=== PATIENT | female | born 1945 | race Hispanic/Latino ===

== ENCOUNTER 2017-07-26 08:20 | Emergency (ER) | payer OTHER ==
[2017-07-26 08:20] VITALS: BMI 27.2
[2017-07-26 08:32] VITALS: RESP 18; TEMP 99.3
[2017-07-26] MEDS ORDERED: Albuterol 0.5% Inhal Sol (2.5 mg/0.5 ml) UD IH STA (08:54)
--- NOTE | 2017-07-26 09:00 | ED PDOC ---
Arrival/HPI - General Chief Complaint: Cough, Cold, Congestion Time Seen by Provider: 07/26/17 08:36 Historian: Patient - History of Present Illness Narrative History of Present Illness (Text): 07/26/17 09:00 A 71 year old female, whose past medical history includes hypertension, presents to the emergency department complaining of difficulty breathing and cough. She describes the cough as intermittent and dry. The patient states that she has been experiencing the shortness of breath for several weeks and was seen by her PMD. She states that she was given an inhaler, but this week her symptoms worsened. She notes that she has an appointment with a technical adjuster later this month. The patient denies fevers, chills, headache, dizziness, chest pain, dyspnea on exertion, abdominal pain, nausea, vomiting, diarrhea, back pain, neck pain, urinary/bowel changes, sick contacts, lower extremity swelling or any other complaint. PMD: Dr. Andre Boring Machine Set Up Operator Jig: Dr. Ordonez Time/Duration: Other (This week) Symptom Onset: Sudden Symptom Course: Unchanged Activities at Onset: Rest, Light Context: Home Past Medical History - Provider Review Nursing Documentation Reviewed: Yes - Past History Past History: Non-Contributing - Infectious Disease Hx of Infectious Diseases: None - Tetanus Immunization Tetanus Immunization: Unknown - Cardiac Hx Hypertension: Yes - Psychiatric Hx Depression: No Hx Emotional Abuse: No Hx Physical Abuse: No Hx Substance Use: No - Past Surgical History Past Surgical History: No Previous - Suicidal Assessment Feels Threatened In Home Enviroment: No Family/Social History - Physician Review Nursing Documentation Reviewed: Yes Family/Social History: No Known Family HX Smoking Status: Never Smoked Hx Alcohol Use: No Hx Substance Use: No Hx Substance Use Treatment: No Allergies/Home Meds Allergies/Adverse Reactions: Allergies shellfish derived Allergy (Verified 07/26/17 08:32) ANAPHYLAXIS Home Medications: Home Meds Medication Instructions Recorded Confirmed Olmesartan/Hydrochlorothiazide 1 tab PO DAILY 07/28/15 07/26/17 [Benicar Hct 40-12.5 mg Tablet] Review of Systems - Physician Review All systems were reviewed & negative as marked: Yes - Review of Systems Constitutional: absent: Fevers, Night Sweats Respiratory: SOB, Cough Cardiovascular: absent: Chest Pain, MUNOZ Gastrointestinal: absent: Abdominal Pain, Stool Changes, Diarrhea, Nausea, Vomiting Genitourinary Female: absent: Urine Output Changes Musculoskeletal: absent: Back Pain, Neck Pain Neurological: absent: Headache, Dizziness Physical Exam Vital Signs Reviewed: Yes Vital Signs Temp Pulse Resp BP Pulse Ox 07/26/17 12:35 65 18 115/72 99 07/26/17 11:35 64 18 150/72 100 07/26/17 08:30 99.3 F 97 H 18 128/88 97 Temperature: Afebrile Blood Pressure: Normal Pulse: Tachycardic Respiratory Rate: Normal Appearance: Positive for: Well-Appearing, Non-Toxic, Comfortable Pain Distress: None Mental Status: Positive for: Alert and Oriented X 3 - Systems Exam Head: Present: Atraumatic, Normocephalic Pupils: Present: PERRL Extroacular Muscles: Present: EOMI Conjunctiva: Present: Normal Mouth: Present: Moist Mucous Membranes Neck: Present: Normal Range of Motion Respiratory/Chest: Present: Clear to Auscultation, Good Air Exchange. No: Respiratory Distress, Accessory Muscle Use Cardiovascular: Present: Regular Rate and Rhythm, Normal S1, S2. No: Murmurs Abdomen: Present: Normal Bowel Sounds. No: Tenderness, Distention, Peritoneal Signs Back: Present: Normal Inspection Upper Extremity: Present: Normal Inspection. No: Cyanosis, Edema Lower Extremity: Present: Normal Inspection. No: Edema Neurological: Present: GCS=15, CN II-XII Intact, Speech Normal Skin: Present: Warm, Dry, Normal Color. No: Rashes Psychiatric: Present: Alert, Oriented x 3, Normal Insight, Normal Concentration Medical Decision Making ED Course and Treatment: 07/26/17 09:12 Impression: A 71 year old female presents to the emergency department with several week duration, worsening shortness of breath and cough Differential Diagnosis included but are not limited to: R/o Bronchitis vs PE vs CHF Plan: -- EKG -- Chest X-ray -- Labs -- Albuterol -- Reassess and disposition Progress Notes: EKG: Ordered, reviewed, and independently interpreted the EKG. Rate : 61 BPM Rhythm : NSR Interpretation : RBBB and diffuse T- wave inversions. Comparison : No change from 07/28/15 07/26/17 10:37 Patient's D-dimer was elevated. Will obtained CTA Chest. Will hydrate secondary to low GFR. Radiology approved CT. PROCEDURE: CT Chest with contrast (Pulmonary Angiogram) Dictator : Maxime Ferguson MD Report Date : 07/26/2017 12:04:27 IMPRESSION: Unremarkable CT pulmonary angiogram. No pulmonary embolus. Solitary pulmonary nodule 7 mm. Posterior segment, right upper lobe. Axial series 4/image 34. Orthogonal sagittal series 602/image 44 Recommended a follow-up in the evaluation of solitary pulmonary nodule Solitary nodule size: 6-8 mm 1. low risk patients: follow-up at 6-12 months, then consider further follow-up at 18-24 months 2. high risk patients: initial follow-up CT at 6-12 months and then at 18-24 months if no change CHEST X-RAY Dictator : Maxime Ferguson MD Report Date : 07/26/2017 12:05:19 IMPRESSION: No active disease. No significant interval change compared to the prior examination(s). 07/26/17 12:44: Patient states that her symptoms have improved. On re-evaluation , lungs are clear. I explained to the patient the result of her Chest CT which showed a pulmonary nodule. The patient was informed of the importance of follow up. She also said maybe she wasn't using the inhaler properly so i gave her instructions. i also prescribed her a nebulizer machine and prednisone. - Lab Interpretations Lab Results: 07/26/17 09:16 07/26/17 09:16 Lab Results 07/26/17 09:16: Sodium 139, Potassium 3.9, Chloride 99, Carbon Dioxide 25, Anion Gap 20, BUN 18, Creatinine 1.1, Est GFR ( Amer) 59, Est GFR (Non- Af Amer) 49, Random Glucose 119 H, Calcium 10.6 H, Lactate Dehydrogenase 367, Total Creatine Kinase 64, Troponin I < 0.01, NT-Pro-B Natriuret Pep 122 07/26/17 09:16: PT 12.8 H, INR 1.11 H, APTT 32.5, D-Dimer, Quantitative 715 H 07/26/17 09:16: WBC 5.3, RBC 5.00, Hgb 14.2, Hct 42.0, MCV 84.0, MCH 28.4, MCHC 33.8, RDW 13.6, Plt Count 287, MPV 9.2, Gran % 57.3, Lymph % (Auto) 35.3 H, [place] % (Auto) 4.9, Eos % (Auto) 2.1, Baso % (Auto) 0.4, Gran # 3.06, Lymph # ( Auto) 1.9, [place] # (Auto) 0.3, Eos # (Auto) 0.1, Baso # (Auto) 0.02 I have reviewed the lab results: Yes - RAD Interpretation Radiology Orders: 07/26/17 08:54 CHEST TWO VIEWS (PA/LAT) [RAD] Stat 07/26/17 09:59 ANGIO CHEST PE PROTOCOL [CT] Stat - EKG Interpretation Interpreted by ED Physician: Yes Type: 12 lead EKG - Medication Orders Current Medication Orders: Discontinued Medications Albuterol Sulfate (Albuterol 0.5% Inhal Ruby (2.5 Mg/0.5 Ml) Ud) 2.5 mg IH STAT STA Stop: 07/26/17 08:55 Last Admin: 07/26/17 09:16 Dose: 2.5 mg Sodium Chloride (Sodium Chloride 0.9%) 1,000 mls @ 999 mls/hr IV .Q1H1M STA Stop: 07/26/17 11:09 Last Admin: 07/26/17 10:15 Dose: 999 mls/hr eMAR Start Stop Document 07/26/17 10:15 RG (Rec: 07/26/17 11:02 RG [id number]) Intravenous Solution Start Date 07/26/17 Start Time 10:15 Prednisone (Prednisone Tab) 60 mg PO STAT STA Stop: 07/26/17 12:44 Last Admin: 07/26/17 12:52 Dose: 60 mg - Scribe Statement The provider has reviewed the documentation as recorded by the Giovanni Rausch Provider Scribe Attestation: All medical record entries made by the Miloibmira were at my direction and personally dictated by me. I have reviewed the chart and agree that the record accurately reflects my personal performance of the history, physical exam, medical decision making, and the department course for this patient. I have also personally directed, reviewed, and agree with the discharge instructions and disposition. Disposition/Present on Arrival - Present on Arrival Any Indicators Present on Arrival: No History of DVT/PE: No History of Uncontrolled Diabetes: No Urinary Catheter: No History of Decub. Ulcer: No History Surgical Site Infection Following: None - Disposition Have Diagnosis and Disposition been Completed?: Yes Diagnosis: Bronchitis Disposition: HOME/ ROUTINE Disposition Time: 12:46 Patient Plan: Discharge Condition: IMPROVED Discharge Instructions (ExitCare): Acute Bronchitis (ED) Additional Instructions: Ms Santos, thank you for letting us take care of you today. Your provider was Dr. Perez. You were treated for Bronchitis, Lung Nodule. The emergency medical care you received today was directed at your acute symptoms. If you were prescribed any medication, please fill it and take as directed. It may take several days for your symptoms to resolve. Return to the Emergency Department if your symptoms worsen, do not improve, or if you have any other problems. Please contact your doctor or call one of the physicians/clinics you have been referred to that are listed on the Patient Visit Information form that is included in your discharge packet. Bring any paperwork you were given at discharge with you along with any medications you are taking to your follow up visit. Our treatment cannot replace ongoing medical care by a primary care provider (PCP) outside of the emergency department. Thank you for allowing the [facility] team to be part of your care today. If you had an X-Ray or CT scan: A Radiologist will review the ED reading if any change in treatment is needed we will contact you. If you had a blood, urine, or wound culture: It will take several days for the results, if any change in treatment is needed we will contact you. If you had an STI test: It will take 48 hours for the results. Please call after 1 week if you have not heard back. Prescriptions: Albuterol 0.083% [Albuterol 0.083% Inhal Ruby (2.5 mg/3 ml) UD] 2.5 mg IH PRN PRN #1 PRN Reason: Shortness Of Breath Albuterol HFA [Ventolin HFA 90 mcg/actuation (8 g)] 2 puff IH Q4 #1 puff Nebulizer [Compact Compressor Nebulizer] 1 each MC Q4H PRN #1 each PRN Reason: Wheezing predniSONE [predniSONE Tab] 40 mg PO DAILY #8 tab Referrals: Fritz Ordonez MD [Staff Provider] - Follow up with primary Rickie Andre DO [Primary Care Provider] - Follow up with primary Forms: [employer] (Ukrainian)
[2017-07-26 09:49] LABS: BASO # 0.02 K/mm3 (0.0-2.0); BASO % 0.4 % (0.0-3.0); EOS # 0.1 (0.0-0.7); EOS % 2.1 % (1.5-5.0); GRAN # 3.06 (1.4-6.5); GRAN % 57.3 % (50.0-68.0); HEMOGLOBIN 14.2 g/dL (12.0-16.0); LYMPH # 1.9 (1.2-3.4); LYMPH % 35.3 % (22.0-35.0); MEAN CORPUSCULAR HEMOGLOBIN 28.4 pg (25.0-35.0); MEAN CORPUSCULAR HGB CONC 33.8 g/dl (31.0-37.0); MEAN PLATELET VOLUME 9.2 fl (7.0-11.0); MONO # 0.3 (0.1-0.6); MONO % 4.9 % (1.0-6.0); RED CELL DISTRIBUTION WIDTH 13.6 % (11.5-14.5); WHITE BLOOD COUNT 5.3 10^3/ul (4.5-11.0)
[2017-07-26 09:54] LABS: INR 1.11 (0.93-1.08); PARTIAL THROMBOPLASTIN TIME 32.5 Seconds (25.1-36.5); PROTHROMBIN TIME 12.8 SECONDS (9.4-12.5)
[2017-07-26 10:00] LABS: BLOOD UREA NITROGEN 18 mg/dL (7-21); CALCIUM 10.6 mg/dL (8.4-10.5); GFR AFRICAN-AMERICAN 59; GFR NON-AFRICAN AMERICAN 49
[2017-07-26 10:09] LABS: B-TYPE NATRIURETIC PEPTIDE 122 pg/mL (0-450); TROPONIN I < 0.01 ng/mL
[2017-07-26] MEDS ORDERED: Sodium Chloride 0.9% 1,000 ML IV STA (10:09)
[2017-07-26] MEDS ORDERED: Iodixanol 320 MG/ML 100 ML BOTTLE IV ONE (10:41)
--- NOTE | 2017-07-26 12:06 | CT ---
PROCEDURE: CT Chest with contrast (Pulmonary Angiogram) HISTORY: Shortness of breath. Pulmonary embolism suspected COMPARISON: July 26, 2017. Two-view chest. TECHNIQUE: Axial computed tomography images were obtained of the chest in the pulmonary arterial phase of enhancement. Coronal and sagittal reformatted images were created and reviewed. Maximum intensity projection (MIP) reconstructed images in the following planes: Sagittal and coronal projections. Intravenous contrast dose: 100 cc Visipaque 320. Mean Hounsfield unit values in the main pulmonary artery: 380.30 Radiation dose: Total exam DLP = 447.34 mGy-cm. This CT exam was performed using one or more of the following dose reduction techniques: Automated exposure control, adjustment of the mA and/or kV according to patient size, and/or use of iterative reconstruction technique. FINDINGS: PULMONARY ARTERIES: Unremarkable. No pulmonary embolism. AORTA: No acute findings. No thoracic aortic aneurysm. LUNGS: 7 mm pulmonary nodule posterior segment right upper lobe. PLEURAL SPACES: Unremarkable. No effusion or pneuomothorax. HEART: Unremarkable. No cardiomegaly. No significant pericardial effusion. LYMPH NODES: No lymphadenopathy. BONES, CHEST WALL: Unremarkable. No fracture or destructive lesion OTHER FINDINGS: Unremarkable. IMPRESSION: Unremarkable CT pulmonary angiogram. No pulmonary embolus. Solitary pulmonary nodule 7 mm. Posterior segment, right upper lobe. Axial series 4/image 34. Orthogonal sagittal series 602/image 44 Recommended a follow-up in the evaluation of solitary pulmonary nodule Solitary nodule size: 6-8 mm 1. low risk patients: follow-up at 6-12 months, then consider further follow-up at 18-24 months 2. high risk patients: initial follow-up CT at 6-12 months and then at 18-24 months if no change
--- NOTE | 2017-07-26 12:07 | RAD ---
HISTORY: Shortness of breath. Pneumonia/ CHF suspected. COMPARISON: 07/28/2015. TECHNIQUE: Chest PA and lateral FINDINGS: LUNGS: No active pulmonary disease. PLEURA: No significant pleural effusion identified. No pneumothorax apparent. CARDIOVASCULAR: No radiographic findings to suggest acute or significant cardiovascular disease. OSSEOUS STRUCTURES: No significant abnormalities. VISUALIZED UPPER ABDOMEN: Normal. OTHER FINDINGS: None. IMPRESSION: No active disease. No significant interval change compared to the prior examination(s).
[2017-07-26 12:56] VITALS: BP 115/72; PULSE 65; O2SAT 99
--- NOTE | 2017-07-26 21:06 | CARD ---
APPROVED REPORT EKG Measurement Heart [id number] [id number] <Conclusion> Normal sinus rhythm Right bundle branch block Minimal voltage criteria for LVH, may be normal variant T wave abnormality, consider lateral ischemia Abnormal ECG
== END 2017-07-26 13:19 | disposition home or self-care (01) ==
LOC: ED 08:20
DX: I10 Essential (primary) hypertension (principal); J20.9 Acute bronchitis, unspecified
CPT/HCPCS: 71046; 71275; 80048; 82550; 83615; 83880; 84484; 85025; 85378; 85610; 85730; 93005; 99284; J7040; Q9967

== ENCOUNTER 2018-05-01 09:04 | Emergency (ER) | payer OTHER ==
[2018-05-01 09:16] VITALS: BMI 27.3
[2018-05-01] MEDS ORDERED: Albuterol-Ipratrop 3 mg / 0.5 (3 ml) UD IH STA (09:48)
--- NOTE | 2018-05-01 09:55 | ED PDOC ---
Arrival/HPI - General Chief Complaint: Flu-like Symptoms Time Seen by Provider: 05/01/18 09:16 Historian: Patient - History of Present Illness Narrative History of Present Illness (Text): 05/01/18 09:52 72 year old female, whose past medical history includes hypertension and hyperlipidemia, presents to the emergency department complaining of dry cough for the past week and a subjective fever. Patient went to her PMD who prescribed her cough suppressant and a Z-Pack. Patient is on day 4 with minimal relief. She denies any smoking history or any history of COPD or Asthma. Patient received flu shot 2 weeks ago and denies any sick contact. Patient denies any chills, chest pain, shortness of breath, nausea, vomiting, diarrhea, urinary symptoms, body aches back pain, neck pain, headache, dizziness, or any other complaints. PMD: Dr. Ordonez Time/Duration: 1 week Symptom Onset: Gradual Symptom Course: Unchanged Activities at Onset: Light Context: Home Past Medical History - Provider Review Nursing Documentation Reviewed: Yes - Past History Past History: Non-Contributing - Infectious Disease Hx of Infectious Diseases: None - Tetanus Immunization Tetanus Immunization: Unknown - Cardiac Hx Cardiac Disorders: Yes Hx Hypertension: Yes - Psychiatric Hx Depression: No Hx Emotional Abuse: No Hx Physical Abuse: No Hx Substance Use: No - Past Surgical History Past Surgical History: No Previous - Suicidal Assessment Feels Threatened In Home Enviroment: No Family/Social History - Physician Review Nursing Documentation Reviewed: Yes Family/Social History: No Known Family HX Smoking Status: Never Smoked Hx Alcohol Use: No Hx Substance Use: No Hx Substance Use Treatment: No Allergies/Home Meds Allergies/Adverse Reactions: Allergies shellfish derived Allergy (Verified 05/01/18 09:22) ANAPHYLAXIS Home Medications: Home Meds Medication Instructions Recorded Confirmed Olmesartan/Hydrochlorothiazide 1 tab PO DAILY 07/28/15 07/26/17 [Benicar Hct 40-12.5 mg Tablet] Review of Systems - Physician Review All systems were reviewed & negative as marked: Yes - Review of Systems Constitutional: Fevers Respiratory: Cough. absent: SOB Cardiovascular: absent: Chest Pain Gastrointestinal: absent: Diarrhea, Nausea, Vomiting Genitourinary Female: absent: Dysuria, Frequency, Hematuria Musculoskeletal: absent: Back Pain, Neck Pain, Other (Malaise) Physical Exam Vital Signs Reviewed: Yes Vital Signs Temp Pulse Resp BP Pulse Ox 11/17/18 09:22 99.7 F H 85 18 160/103 H 95 Temperature: Febrile (Low-grade) Blood Pressure: Hypertensive Pulse: Regular Respiratory Rate: Normal Appearance: Positive for: Well-Appearing, Non-Toxic, Comfortable Pain Distress: None Mental Status: Positive for: Alert and Oriented X 3 - Systems Exam Head: Present: Atraumatic, Normocephalic Pupils: Present: PERRL Extroacular Muscles: Present: EOMI Conjunctiva: Present: Normal Mouth: Present: Moist Mucous Membranes Neck: Present: Normal Range of Motion Respiratory/Chest: Present: Clear to Auscultation, Good Air Exchange. No: Respiratory Distress, Accessory Muscle Use Cardiovascular: Present: Regular Rate and Rhythm, Normal S1, S2. No: Murmurs Abdomen: No: Tenderness, Distention, Peritoneal Signs Back: Present: Normal Inspection Upper Extremity: Present: Normal Inspection. No: Cyanosis, Edema Lower Extremity: Present: Normal Inspection. No: Edema Neurological: Present: GCS=15, CN II-XII Intact, Speech Normal Skin: Present: Warm, Dry, Normal Color. No: Rashes Psychiatric: Present: Alert, Oriented x 3, Normal Insight, Normal Concentration Medical Decision Making ED Course and Treatment: 05/01/18 09:52 Impression: 72 year old female presents complaining of dry cough for the past week associated with subjective fever. Plan: -- Chest X-ray -- Duoneb -- Influenza A B -- Reassess and disposition Prior Visits: Notes and results from previous visits were reviewed. Progress Notes: PROCEDURE: Chest X-ray Dictator : Ele Childress MD Report Date : 05/01/2018 10:48:46 IMPRESSION: Mild cardiomegaly. Biapical pleural thickening. Linear atelectasis, left lung base. 05/01/18 11:08 On re-evaluation, patient feels better after her treatment. Patient negative for Flu. I have discussed the results and plan with the patient, who expresses understanding. Patient in agreement with plan to be discharged home with prescription for Prednisone. Patient is stable for discharge. Patient was instructed to follow up with her PMD Dr. Ordonez or return if symptoms worsen or new concerning symptoms arise. - RAD Interpretation Radiology Orders: 05/01/18 09:16 CHEST TWO VIEWS (PA/LAT) [RAD] Stat - Medication Orders Current Medication Orders: Discontinued Medications Albuterol/Ipratropium (Duoneb 3 Mg/0.5 Mg (3 Ml) Ud) 3 ml IH STAT STA Stop: 05/01/18 09:49 - Scribe Statement The provider has reviewed the documentation as recorded by the Miloibe Leena Mantilla Provider Scribe Attestation: All medical record entries made by the Scribe were at my direction and personally dictated by me. I have reviewed the chart and agree that the record accurately reflects my personal performance of the history, physical exam, medical decision making, and the department course for this patient. I have also personally directed, reviewed, and agree with the discharge instructions and disposition. Disposition/Present on Arrival - Present on Arrival Any Indicators Present on Arrival: No History of DVT/PE: No History of Uncontrolled Diabetes: No Urinary Catheter: No History of Decub. Ulcer: No History Surgical Site Infection Following: None - Disposition Have Diagnosis and Disposition been Completed?: Yes Diagnosis: Cough Disposition: HOME/ ROUTINE Disposition Time: 10:45 Condition: IMPROVED Discharge Instructions (ExitCare): Cough, Adult (DC) Additional Instructions: ANDRAE BLACKBURN, thank you for letting us take care of you today. The emergency medical care you received today was directed at your acute symptoms. If you were prescribed any medication, please fill it and take as directed. It may take several days for your symptoms to resolve. Return to the Emergency Department if your symptoms worsen, do not improve, or if you have any other problems. Please contact your doctor or call one of the physicians/clinics you have been referred to that are listed on the Patient Visit Information form that is included in your discharge packet. Bring any paperwork you were given at discharge with you along with any medications you are taking to your follow up visit. Our treatment cannot replace ongoing medical care by a primary care provider outside of the emergency department. Thank you for allowing the [facility] team to be part of your care today. Follow up with Dr. Ordonez early next week for re-evaluation and further management. Prescriptions: predniSONE [Prednisone] 40 mg PO DAILY #10 tab Referrals: Fritz Ordonez MD [Staff Provider] - Follow up with primary Forms: [employer] (Turkmen)
--- NOTE | 2018-05-01 10:52 | RAD ---
HISTORY: cough r/o infiltrate COMPARISON: Chest x-ray performed 07/26/17 TECHNIQUE: Chest PA and lateral FINDINGS: LUNGS: Biapical pleural thickening. Linear atelectasis, left lung base. No focal consolidation. Please note that chest x-ray has limited sensitivity for the detection of pulmonary masses. PLEURA: No significant pleural effusion identified. No definite pneumothorax . CARDIOVASCULAR: Mild cardiomegaly. Atherosclerotic calcification present. OSSEOUS STRUCTURES: Degenerative changes. Osseous demineralization. VISUALIZED UPPER ABDOMEN: Unremarkable. OTHER FINDINGS: None. IMPRESSION: Mild cardiomegaly. Biapical pleural thickening. Linear atelectasis, left lung base.
[2018-05-01 11:23] VITALS: BP 141/80; PULSE 89; RESP 19; TEMP 98.9; O2SAT 99
== END 2018-05-01 11:23 | disposition home or self-care (01) ==
LOC: ED 09:04
DX: R05 Cough (principal); I10 Essential (primary) hypertension; E78.5 Hyperlipidemia, unspecified